=== PATIENT | female | born 1980 | race Caucasian/White ===

== ENCOUNTER 2023-05-17 20:40 | Emergency (ER) | payer OTHER, SELFPAY ==
[2023-05-17 20:48] VITALS: BP 122/82; PULSE 72; RESP 16; TEMP 36.8; O2SAT 100; BMI 19.4
--- NOTE | 2023-05-17 20:56 | ED_ITS ---
HPI - Eye Problem General Time Seen by Provider: 20:56 Date Seen: 05/17/23 Chief complaint: Eye Problems Stated complaint: Foreign object R eye Time Seen by Provider: 05/17/23 20:56 Source: patient and RN notes reviewed Limitations: no limitations History of Present Illness HPI Narrative: Patient is a 42-year-old female thinking that she either scratch dry her has something in her eye. Her eye is irritated, can still see however. She feels discomfort medially and just below, more central in the eye. Denies any visual changes but the discomfort is making her tear and keep your eye closed. Her was cutting down trees, this is when her eye started to bother her, thinks she may have gotten some of the debris from the tree cutting in her eye. Related Data Home Medications Medication Instructions Recorded Confirmed No Known Home Medications 12/29/22 12/29/22 Allergies Allergy/AdvReac Type Severity Reaction Status Date / Time No Known Drug Allergies Allergy Verified 05/17/23 20:47 Review of Systems Narrative: As per HPI. PFSH PFSH Surgical History History of hysterectomy ?Z90.710 - Acquired absence of both cervix and uterus (ICD-10) Hx of LASIK ?Z98.890 - Other specified postprocedural states (ICD-10) Family History Father Depression Bipolar disorder Mother Depression Bipolar disorder Sister Depression Bipolar disorder Social History Smoking Status: Current every day smoker Exam Const: Vital Signs, click to edit/add: Vital Signs - 24 hr 05/17/23 20:48 Temperature 98.3 F Pulse Rate [Right Pulse Oximeter] 72 Respiratory Rate 16 Blood Pressure [Ri ght Upper Arm] 122/82 Pulse Oximetry 100 Oxygen Delivery Me thod Room Air 42-year-old female with closing of her r ight eye, some watering. She is able to open the eye, mild redness medially of the sclera/conjunctiva. Visualization within without magnification reveals no retained foreign body. There is no periorbital swelling or erythema. Patient was given 2 drops of tetracaine ophthalmic for anesthesia, had complete resolution of her symptoms. Floor seen was applied. I was inspected with the Wood's lamp. There is some mild uptake along the medial edge of the cornea more on the sclera and a little bit just below. I everted lids and saw no retained foreign body. Patient felt completely fine after the tetracaine was given. Documenting provider has reviewed patient's vital signs: yes Course Vital Signs Vital signs: Initial Vital Signs Temperature 98.3 F 05/17/23 20:48 Temperature Source Temporal Artery Scan 05/17/23 20:48 Pulse Rate 72 05/17/23 20:48 Pulse Rhythm Regular 05/17/23 20:48 Pulse Strength 3+ Normal 05/17/23 20:48 Respiratory Rate 16 05/17/23 20:48 Blood Pressure 122/82 05/17/23 20:48 Blood Pressure Mean 95 05/17/23 20:48 Blood Pressure Position Sitting 05/17/23 20:48 Pulse Oximetry 100 05/17/23 20:48 Oxygen Delivery Method Room Air 05/17/23 20:48 Vital Signs Temperature 98.3 F 05/17/23 20:48 Pulse Rate 72 05/17/23 20:48 Respiratory Rate 16 05/17/23 20:48 Blood Pressure 122/82 05/17/23 20:48 Pulse Oximetry 100 05/17/23 20:48 Oxygen Delivery Method Room Air 05/17/23 20:48 Temperature 98.3 F 05/17/23 20:48 Pulse Rate 72 05/17/23 20:48 Respiratory Rate 16 05/17/23 20:48 Blood Pressure 122/82 05/17/23 20:48 Pulse Oximetry 100 05/17/23 20:48 Oxygen Delivery Method Room Air 05/17/23 20:48 Discharge Plan Discharge Clinical Impression: Abrasion of sclera of right eye Patient Disposition: Home, Self-Care Condition: Stable Instructions: Corneal Abrasion (ED) Additional Instructions: Use gentamicin eyedrops, 2 drops right eye 4 times a day for the next few days. Tylenol and ibuprofen alternating per bottle directions as needed for discomfort overnight. If your eye is still symptomatic or bothersome tomorrow, need to follow-up with Optometry. Can try [facility] in [place] and see if they can see you. Activity Level: Activity as Tolerated Discharge Diet: Regular Prescriptions: No Action No Known Home Medications Stand Alone Forms: [facility] Info Instructions
== END 2023-05-17 21:30 | disposition home or self-care (01) ==
LOC: ED 21:24
PROVIDERS: Emergency Provider Family Medicine
DX: S05.01XA Injury of conjunctiva and corneal abrasion without foreign body, right eye, initial encounter (principal)
CPT/HCPCS: 99282; 99283; A9270